=== PATIENT | female | born 1950 | race Caucasian/White ===

== ENCOUNTER 2023-11-13 08:46 | Outpatient (CLI) | payer MEDICARE, SELFPAY | END 2023-11-13 08:47 | disposition home or self-care (01) | PROVIDERS: Visit Provider Nurse Practitioner Family | DX: R55 Syncope and collapse (principal) | CPT/HCPCS: 93246 ==

== ENCOUNTER → 2023-12-02 04:00 | Outpatient (CLI) | payer MEDICARE, SELFPAY ==
--- NOTE | 2023-12-02 | DI.US_ITS ---
APPROVED REPORT EXAM: Comprehensive 2D, Doppler, and color-flow Echocardiogram Patient Location: Out-Patient After School Counselor: Della Goins RDCS (AE) Indications: Cardiac murmur, syncope/collapse Other Information Study Quality: Adequate Conclusion Normal left ventricular wall thickness and chamber size. Ejection fraction is 60%. Wall motion is n ormal Normal right ventricular size and function Both atria are normal in size There is no structural or hemodynamically significant valvular disease Estimated right ventricular systolic pressure is 26 mmHg Wall motion Left Ventricle The left ventricle is normal size. The left ventricular systolic function is normal. The left ventric ular ejection fraction is within the normal range. There is normal left ventricular wall thickness. T here is normal LV segmental wall motion. There is no ventricular septal defect visualized. LVEF is 60 %. Right Ventricle The right ventricle is normal size. The right ventricular systolic function is normal. Atria The left atrium size is normal. The right atrium size is normal. The interatrial septum is intact wit h no evidence for an atrial septal defect. Aortic Valve The aortic valve is normal in structure. Aortic valve is trileaflet. There is no aortic valvular sten osis. Trace aortic regurgitation. Mitral Valve The mitral valve is normal in structure. No evidence of mitral valve stenosis. Trace to mild mitral r egurgitation. Tricuspid Valve The tricuspid valve is normal in structure. There is no tricuspid valve stenosis. Trace to mild tricu spid regurgitation. The RVSP is 25.8 mmHg. Pulmonic Valve Pulmonic valve is not well visualized. There is no pulmonic valvular stenosis. There is no pulmonic v alvular regurgitation. Great Vessels The aortic root is normal in size. The ascending aorta is normal in size. Aortic arch is normal in ca liber. IVC is normal in size and collapses >50% with inspiration. Pericardium There is no pericardial effusion. 2D Dimensions IVSD d PLAX 0.88 cm F: 0.6-1.0 Ao Root d 3.15 cm F: 2.7 - 3.3 LVPW d PLAX 0.90 cm F: 0.6 - 1.0 Ao Asc Diam d 3.19 cm F: 2.3 - 3.1 LVID d PLAX 4.95 cm F: 3.8 - 5.2 LVDs 3.37 cm F: 2.2 - 3.5 LV EF Teichholz 59.8 % FS 31.93 % LV EDV (Teich) 115.3 mL LV ESV (Teich) 46.3 mL M-Mode TAPSE 2.14 cm (M/F) >1.7 Auto EF LV EDV A4C 109.1 mL LV EDV A2C 90.4 mL LV EDV BP 100.4 mL LV ESV A4C 43.3 mL LV ESV A2C 37.0 mL LV ESV BP 39.8 mL LVEF(%) A4C 60.3 % LVEF(%) A2C 59.1 % LVEF(%) BP 60.4 % LV SV A4C 65.8 ml LV SV A2C 53.4 ml LV SV BP 60.7 ml LV CO A4C 3.4 L/min LV CO A2C 2.7 L/min LV CO BP 3.0 L/min HR A4C 51.14 BPM HR A2C 51.07 BPM LV EDV Index (BP) LA Volume LA Length A4C 4.1 cm LA Length A2C 4.3 cm LA Area A4C s 12.93 cm2 LA Area A2C s 13.49 cm2 LA Vol A4C A-L 34.62 mL LA Vol A2C A-L 35.99 mL LA Vol Biplane A-L 36.1 mL LA Vol/BSA A4C A-L LA Vol/BSA A2C A-L LA Vol/BSA BP A-L 20.5 mL/m2 LA Vol A4C MOD 32.5 mL LA Vol A2C MOD 33.3 mL LA Vol BP MOD 33.6 mL RA Volume RA Area A4C 9.1 cm2 RA ESV A4C (A-L) 20.1mL RA Vol/BSA A4C A-L RA Length A4C 3.5 cm RA ESV A4C (MOD) 19.2mL LV Diastology MV E' medial 0.079 (>0.07 m/s) MV E Vmax 0.69 (0.4-1.3 m/s) MV E/E' MED 8.74 (<14) MV A Vmax 0.70 (0.4-1.3 m/s) MV E' lateral 0.077 (>0.1 m/s) E/A Ratio 1.0 MV E/E' LAT 8.94 (<14) MV E' Average 0.078 m/s MV E/E'(average) 8.84 Aortic Valve AoV Vmax 1.23 m/s LVOT Vmax 1.04 m/s AoV Peak Grad 6.1 mmHg LVOT Peak Grad 4.3 mmHg AoV Area (Vmax) 2.66 cm2 LVOT VTI 0.227 m AoV VTI 0.299 m LVOT Mean Grad 2.2 mmHg AoV Mean Daniel. 0.86 m/s LVOT SV 71.66 mL AoV Mean Grad 3.4 mmHg LVOT Diam s 2.00 cm AoV Area (VTI) 2.40 cm2 Velocity Ratio 0.85 Mitral Valve MV DT 171 (160-240 msec) MV Vmax TIPS 0.71 m/s MV Mean Grad 0.7 (<2mmHg) MV VTI 0.321 m Pulmonary Valve PV Vmax 0.83 (0.5-1.5 m/s) RVOT Vmax 0.53 m/s PV Peak Grad 2.8 mmHg RVOT Peak Gr. 1.1 mmHg PV Mean Daniel 0.60 m/s RVOT VTI 0.113 m PV Mean Grad 1.6 mmHg RVOT Mean Gr. 0.7 mmHg Tricuspid Valve RA Pressure 3.00 mmHg TR Vmax 2.39 m/s TV S' 0.15 m/s TR Peak Grad 22.8 mmHg RVSP (TR) 25.8 mmHg
== END ==
PROVIDERS: PCP Nurse Practitioner Family; Visit Provider Nurse Practitioner Family
DX: R55 Syncope and collapse (principal); R01.1 Cardiac murmur, unspecified; I36.1 Nonrheumatic tricuspid (valve) insufficiency; I34.0 Nonrheumatic mitral (valve) insufficiency
CPT/HCPCS: 93306

== ENCOUNTER 2023-12-11 07:19 | Outpatient (CLI) | payer MEDICARE, SELFPAY ==
--- NOTE | 2023-12-11 08:55 | W.CARDEVENT ---
Date of service: 12/11/23 Time of Service: 08:55 Cardiac Event Recorder Referring Provider:: Hilary Varela Indications:: Syncope Cardiac Event Note: This is a cardiac event monitor Patient was monitored for 13 days and 3 hours Rhythm throughout was sinus with an average heart rate of 54. Minimum was 27, maximum 161. There were very rare isolated ventricular ectopic beats. There were rare atrial premature beats. There were several brief self-limited atrial runs. These were generally 3-4 beats in duration, longest was 10 beats. There was no atrial fibrillation, no high-grade AV block, no pauses greater than 3 seconds Patient's symptoms correlated with sinus rhythm and sinus tachycardia
== END 2023-12-11 07:20 | disposition home or self-care (01) ==
LOC: CARDOPNVT 07:19
PROVIDERS: PCP Nurse Practitioner Family; Visit Provider Internal Medicine Cardiovascular Disease
DX: R55 Syncope and collapse (principal); I49.1 Atrial premature depolarization
CPT/HCPCS: 93248

== ENCOUNTER 2024-04-15 01:00 | Outpatient (CLI) | payer MEDICARE, SELFPAY ==
--- NOTE | 2024-04-15 | ETT_ITS ---
APPROVED REPORT Exam: Exercise Treadmill Patient Location: Out-Patient Room/Bed: Stress Nurse: Gita Guo RN Ordering Provider:HANNAH HUGGINS, Contact Number: [phone] BMI: 24.20 Baseline Rhythm: Sinus Bradycardia Indications: SOB, Medical History Medical History: Basal cell carcinoma of face, murmur, HLD, pituitary adenoma, syncope, bradycardia Cardiac Medications: Atorvastatin, bromocriptine, calcium, estradiol, ferrous sulfate, vitamin K2, zy rtec Allergies: Penicillin Cardiac Risk Factors: HLD, former smoker Previous Cardiac Procedures: None Pretest Chest Pain Characteristics: None Exercise History: Physically active Physical Disabilities: L hip Lung Sounds: Clear to auscultation Heart Sounds: Irregular Stress Test Details Test: Exercise stress testing was performed using a Aj protocol. Rest Stress HR Resting HR Supine: 55 bpm Max Heart Rate (APMHR): 145 bpm Resting HR Standin bpm Target HR (85% APMHR): 123 bpm Max HR Achieved: 136 bpm % of APMHR: 94 Recovery HR: 55 bpm HR response to stress: Accelerated HR response to stress BP Resting BP Supine: 130/72 mmHg Resting BP Standin/70 mmHg Max BP: 158/68 mmHg Recovery BP: 128/70 mmHg BP response to stress: Normal blood pressure response to stress. ECG Resting ECG: Sinus Bradycardia Ectopy: None Stress ECG: Sinus Tachycardia ST Change: No significant ST segment changes noted Arrhythmia: Rare PVC's Recovery ECG: Sinus Bradycardia Recovery ST Change: No significant ST segment changes noted Recovery Arrhythmia: Rare PVC's Clinical Reason for Termination: Target HR Achieved, artifact Stress Symptoms: None Exercise duration: 03 min59 sec Highest Stage Reached: Stage 1: 1.7 mph at 10% grade. Exercise capacity: 5.81 METs Angina Score: None Pimentel Treadmill Score: 3.6 Rate Pressure Product: [id number] Stress ECG Conclusion 1. Resting electrocardiogram showed low voltage and late transition 2. Patient exercised on the Aj protocol and completed workload of 5.8 METS 3. Normal blood pressure response to exercise. Accelerated heart rate response to exercise suggest d econditioning. Patient achieved 96% of the maximal predicted heart rate for age 4. There was no electrocardiographic evidence of myocardial ischemia 5. There were no significant dysrhythmias Pimentel Treadmill Score is 3.6 which is Moderate risk. Stress Test Summary STAGE Time (mins) Speed (mph) Grade (%) HR BP SpO2 SYMPTOMS METS Supine 55 130/72 98% Standing 61 112/70 1 3 1.7 10 118 152/68 97% 4.5 2 6 2.5 12 130 7 1 min recovery 96 158/68 97% 3 min recovery 57 128/70 97% 6 min recovery 55 127/72
== END 2024-04-15 01:20 ==
LOC: DI 01:00
PROVIDERS: PCP Nurse Practitioner Family; Visit Provider Nurse Practitioner Family
DX: R06.02 Shortness of breath (principal)
CPT/HCPCS: 93016; 93018; 93017

== ENCOUNTER → 2024-10-06 10:09 | Outpatient (BNVA) | payer MEDICARE, SELFPAY | PROVIDERS: PCP Nurse Practitioner Family; Referring Provider Nurse Practitioner Family; Visit Provider Student in an Organized Health Care Education/Training Program | DX: M70.62 Trochanteric bursitis, left hip (principal) | CPT/HCPCS: 99213 ==

== ENCOUNTER 2024-11-11 09:41 | Day surgery (SDC) | payer MEDICARE, SELFPAY ==
[2024-11-11] VITALS (23 sets, daily range): BP systolic 82–152; BP diastolic 37–91; PULSE 39–62; RESP 12–34; TEMP 36–36.7; O2SAT 94–100; BMI 24.5
--- NOTE | 2024-11-11 07:21 | W.PM.DSUDISC ---
Date of service: 11/11/24 Discharge Plan Disposition Patient Disposition: Home Condition: Stable Discharge Details Attending Provider: Jaycob Jacob Primary Care Provider: Hilary Varela Home Meds and New Rx's Prescriptions: New aspirin 81 mg capsule 81 mg PO DAILY 14 Days Qty: 14 0RF naproxen 250 mg tablet 250 - 500 mg PO BID PRN (Reason: moderate pain and swelling) Qty: 40 0RF tramadol 50 mg tablet 50 mg PO Q8H PRN (Reason: severe pain) Qty: 12 0RF Continued atorvastatin 10 mg tablet 10 mg PO QHS bromocriptine 2.5 mg tablet 2.5 mg PO DAILY Rx Instructions: must administer with a meal/food calcium citrate 250 mg calcium tablet 250 mg PO DAILY estradiol 0.01 % (0.1 mg/gram) cream 1 appful vaginal DAILY Rx Instructions: for 14 days ferrous sulfate 325 mg (65 mg iron) tablet 325 mg PO DAILY cyanocobalamin (vitamin B-12) 1,000 mcg capsule 1,000 mcg PO DAILY Discharge Instructions Additional Instructions: Surgery: Left hip endoscopy with iliotibial band release, trochanteric bursectomy, and gluteal tendon repair 11/11/24 Activity: Protected weightbearing with a walker for 6 weeks. Gentle hip range of motion. No strengthening for 10 weeks. A physical therapy prescription will be sent electronically to begin in about 3 weeks. Prescriptions: Aspirin 81 mg take 1 daily to prevent a blood clot for 2 weeks Naproxen 250 mg take 1-2 every 12 hours with a meal as needed for moderate pain Tramadol 50 mg take 1 every 8 hours as needed for severe pain You may use [id number] Tylenol (acetaminophen) as needed for mild pain. These pain medications may be taken all at once or in different combinations as needed. Also, recommend Colace (docusate) as a stool softener as surgery and pain medicine cause constipation. You may try [id number] diphenhydramine (Benadryl) 25-50 mg nightly as a sleep aid Dressings: Leave dressing in place for 3 days. May then remove and leave open to air or cover incisions with Band-Aids. Leave the sticky Steri-Strips in place until they fall off or remove them after you shower. May shower after 5 days. Follow-up: 10-[address] Jacob You may take off the leg compression stockings this evening at home. You may also leave them on a few days longer if you have a history of leg swelling or edema. Let us know right away if you develop any redness, drainage, fevers, chest pain, or trouble breathing. Do not drink alcohol or drive for at least 24 hours after anesthesia. Please call the office during business hours with any questions or concerns. Discharge Orders Discharge Orders: Discharge Order (Routine); Ordered 11/11/24 Ordered By: Alexia Levin DS: Diagnosis Discharge Diagnosis (1) Trochanteric bursitis of left hip: Status: Acute (2) Tear of left gluteus medius tendon: Status: Acute (3) Iliotibial band syndrome of left side: Status: Acute
--- NOTE | 2024-11-11 07:32 | ROE_ITS ---
Operative Note Operative Note PRE-OP DIAGNOSIS: Left hip 1. Iliotibial band syndrome 2. Trochanteric bursitis 3. Gluteal tendinopathy POST-OP DIAGNOSIS: same Left hip 1. Iliotibial band syndrome 2. Trochanteric bursitis 3. Gluteal tendon tearing PROCEDURE: Left hip endoscopic 1. Iiliotibial band release, CPT# 04558 2. Trochanteric bursectomy, CPT# 80700 3. Gluteal tendon repair, CPT# 79140 SURGEON: Jaycob Jacob HOME LIGHTING ADVISER: Alexia Levin ANESTHESIA TYPE: Local By Surgeon and General LMA/ETT Refer to Anesthesia Record ESTIMATED BLOOD LOSS: 10 COMPLICATIONS: None Patient was transported to: PACU Patient's condition: stable Implants: Arthrex 4.75 mm bio composite SwiveLock anchor Indications: Please see complete medical record for details. Findings: Fairly normal iliotibial band. Moderately abundant and inflamed trochanteric bursitis. Obvious large and chronic?appearing gluteal minimus and medius tendon tearing. There was a split between the posterior and anterior portions of the medius and detachment of the superficial about 50% tendon layers with moderate retraction. There was fraying and softening of the attachment and partial detachment of the gluteus minimus anteriorly. Fibrinous softened bone changes beneath the tendon tearing devoid area. Procedure Description: In the operating room, general anesthesia was induced. The patient was positioned supine on the [place] operating room table. All bony prominences were well-padded. Preoperative antibiotics were administered. The hip was prepped and draped in the usual sterile fashion. The correct patient, procedure, and side of the procedure were all verified prior to incision. 30 cc of 0.25% bupivacaine containing epinephrine was infiltrated about the subcutaneous tissues for the planned anterior lateral and distal anterolateral portals as well as deeply over the greater trochanter. A knife was used to incise the skin for the anterior lateral and distal anterolateral portals followed by blunt dissection subcutaneously. Under fluoroscopic guidance, a s witching stick and arthroscope were inserted localizing the iliotibial band over the greater trochanter. Blunt dissection and the mechanical shaver were used to resect fat and overlying tissue about the center of the iliotibial band and carefully expose the anterior and posterior margins. Once there was adequate exposure of the IT band, the greater trochanter was again localized under fluoroscopic guidance with a spinal needle inserted through the skin down to bone. This central area was marked using the radiofrequency ablator. A Bourbon blade was brought in and used to create a 2 cm longitudinal incision in line with the IT band fibers as well as extending it in a cruciate fashion with 2 cm incisions anteriorly and posteriorly. The radiofrequency ablator was used to achieve hemostasis. The mechanical shaver was then used to debride the IT band released edges exposing the trochanteric bursa. The mechanical shaver was then used to excise the trochanteric bursa taking care to protect musculature about the margins of the greater trochanter as well as neurovascular structures especially posteriorly. There was excellent visualization of the vastus lateralis as well as gluteus medius confirming appropriate bursa excision. The hip was brought through range of motion including internal and external rotation and there was no impinging iliotibial band tissue or remaining pathologic bursa. The viewing and working portals were switched and appropriate IT band release, trochanteric bursa excision, and hemostasis confirmed. The gluteal tendons were then thoroughly inspected and probed. The grasper was used to confirm reasonable tissue for repair of the large partial superficial layers involving the gluteus minimus and medius. Given the advanced age and chronicity of the tendon tear, repair was planned to a single central anchor with large tissue grabs. Between the tendon layers and at the tendon bone interface the rasp and shaver were used to thoroughly prepare debride and abrade and optimize tissue for repair. The Onevestion self retrieving suture passer was then used to place a FiberTape in a wide inverted horizontal mattress configuration incorporating the gluteus medius. A suture tape FiberLink was then placed incorporating the bulk of the past the split tearing more anteriorly. The punch and fluoroscopy were used to localize best anchor placement in good bone. All 3 suture tails were then loaded on the anchor eyelet and a 4.75 mm SwiveLock anchor was deployed with excellent fixation strength and good tissue reduction and hold. There was some redundant and softening of the gluteus minimus more anteriorly centrally distally, which was incorporated with a single tail of the sliding #2 FiberWire shuttled through the tissue and secured with SMC arthroscopic knot. The repair was inspected stable through motion and probing with good tissue anteriorly to anterior approximately. Excellent tissue posteriorly. Some deficiency and limited coverage more centrally proximally over the area of worst injury and softened bone. Suction was used to remove fluid from the endoscopic space. The portals were closed using 3-0 Monocryl in a buried fashion. Steri-Strips were applied over the incisions followed by Xeroform, 4 x 4 gauze, an ABD pad, and secured with tape. The patient awoke from anesthesia without complication and was transferred to the recovery room in a stable condition. Date of Procedure: 11/11/24
--- NOTE | 2024-11-11 07:47 | W.ANESPRE ---
General Info Date of Service Date Performed: 11/11/24 Height: 5 ft 6 in Weight: 68.946 kg Body Mass Index (BMI): 24.5 Surgical Procedure: Operation Date: 11/11/24 12:20 Proposed Procedure Side Surgeon p Endoscopic Iliotibial Band Release w/ Trochanteric Bursectomy, Possible Gluteal Tendon Repair Left Jaycob Jacob MD Actual Procedure Side Surgeon p Endoscopic Iliotibial Band Release w/ Trochanteric Bursectomy, Possible Gluteal Tendon Repair Left Jaycob Jacob MD Pre-Op Diagnosis Post-Op Diagnosis Trochanteric bursitis of left hip Meds Allergies and Home Medications Allergies Allergy/AdvReac Type Severity Reaction Status Date / Time Penicillins Allergy Intermediate Other (See Verified 11/11/24 10:43 Comment) Home Medication ?Medication ?Instructions ?Recorded atorvastatin 10 mg tablet 10 mg PO QHS 09/08/24 bromocriptine 2.5 mg tablet 2.5 mg PO DAILY 09/08/24 calcium citrate 250 mg PO DAILY 09/08/24 cyanocobalamin (vitamin B-12) 1,000 mcg PO DAILY 09/08/24 1,000 mcg capsule estradiol 0.01% (0.1 mg/gram) 1 appful vaginal DAILY 09/08/24 vaginal cream ferrous sulfate 325 mg (65 mg 325 mg PO DAILY 09/08/24 iron) tablet Current Visit Medications: Current Medications Generic Name Dose Route Start Last Admin Trade Name Freq PRN Reason Stop Dose Admin Ringer's Solution 1,000 mls @ 80 mls/hr 11/11/24 06:00 IV 11/11/24 23:59 INFUSION ALESSIO Cefazolin Sodium/Dextrose 2 gm in 50 mls @ 100 mls/hr 11/11/24 06:00 Ancef Duplex IVPB 11/11/24 23:59 PREOP ALESSIO Tranexamic Acid/Sodium Chloride 1,000 mg in 100 mls @ 600 mls/hr 11/11/24 06:00 IVPB 11/11/24 23:59 DIRECTED ALESSIO IV Miscellaneous Supplies 1 each 11/11/24 06:00 Iv Access IV 11/11/24 23:59 DIRECTED ALESSIO Oxycodone HCl 0 mg 11/11/24 07:20 Oxycodone 5 Mg Tab PO 12/11/24 07:19 Q3H PRN PRN Pain Sodium Chloride 0 ml 11/11/24 06:00 Normal Saline Flush 10 Ml Syr IV 11/11/24 23:59 PRN PRN Sodium Chloride 0 ml 11/11/24 06:00 Normal Saline 10 Ml Vial IJ 11/11/24 23:59 DIRECTED PRN Sterile Water 0 ml 11/11/24 06:00 Water,Injection,Sterile 10 Ml Vial IJ 11/11/24 23:59 DIRECTED PRN PFSH Active Problems Active Problems: Problem Status Onset Code Trochanteric bursitis of left hip Acute M70.62 Medical History Medical History (Updated 11/10/24 @ 08:48 by Angel Sandy) Pituitary adenoma Basal cell carcinoma of face Murmur pt. states she was unaware of this Hyperlipemia Surgical History Surgical History History of cholecystectomy History of colonoscopy History of cataract surgery Tobacco Smoking/Tobacco Use Status: Former Tobacco Use Passive smoking exposure: No Alcohol Alcohol Intake: current Alcohol intake frequency: a few times a week Substance Use Substance use: Daily Substance use type: marijuana Details: edibles Vital Signs and Lab Results Lab Results Blood Type / Crossmatch: No Data to Display Complete Blood Count: No Data to Display Complete Metabolic Panel: No Data to Display Liver Function Panel: No Data to Display Coagulation Panel: No Data to Display Cardiac Panel: No Data to Display Arterial Blood Gas: No Data to Display Venous Blood Gas: No Data to Display Pancreas Panel: No Data to Display Thyroid Panel: No Data to Display Infectious Disease: No Data to Display Blood Cultures: No Data to Display Toxicology Panel: No Data to Display Anesthesia Assessment and Plan Anesthesia History Personal History: No History of Anesthesia Complications Family History: No Family History of Anesthesia Complications Exercise Tolerance Exercise Tolerance: Metabolic Equivalents>4 Cardiac & Pulmonary Exam Cardiac Exam: Normal S1/S2 Heart Sounds Pulmonary Exam: Clear Bilateral Breath Sounds Implantable Cardiac Device Does patient have a Pacemaker or an ICD?: No Airway Exam Known Difficult Airway: No Mallampati Class: 3 Mouth Opening: Narrow (< 3cm) Thyromental Distance: Greater than 3 cm Neck Range of Motion: Full ROM Neck Circumference: Normal Teeth Condition: Normal Dentition ASA Classification ASA Score: ASA 2 Emergency Case?: No NPO Status NPO Status: NPO Clears >2 hours, Solids >8 hours Anesthesia Plan Resuscitation Status: Full Code Anesthesia Technique: General Anesthesia Airway Planned: Endotracheal Tube Monitors Used: Standard Monitors Preoperative Comments:: 74 yo female for IT release. Sig PMHx: pituitary adenoma (bromcriptine), former smoker, occ EtOH. ECHO: LVEF 60%, no sig valve issues. Stress: 5.8 METS, no ECG evidence of ischemia.
[2024-11-11] MEDS: Lactated Ringers 1,000 ML 80 ML IV (10:41)
[2024-11-11] MEDS: ceFAZolin 2 GM/50 ML BAG IVPB (12:15)
[2024-11-11] MEDS: TRANEXAMIC ACID/SOD. CHL. 1,000 MG/100 ML BAG 600 MG IVPB (12:23)
--- NOTE | 2024-11-11 13:24 | DI.RAD_ITS ---
Exam(s) XR HIP LT IN OR EXAM: XR HIP LT IN OR CLINICAL HISTORY: Trochanteric bursitis of left hip TECHNIQUE: 2D and realtime digital imaging was performed. CONTRAST MATERIAL: Refer to procedure report. COMPARISON: MR MR HIP LT WO CONTRAST from 08/18/2024 FINDINGS: Fluoroscopy was provided for Dr. Jacob in the OR . Please refer to the procedure report for comple te details. Ka,r=0.84 mGy IMPRESSION: RADIATION DOSE DELIVERED: 0.0 0.0 0
[2024-11-11] MEDS: EPINEPHrine 10 MG/10 ML ML (13:28)
--- NOTE | 2024-11-11 14:27 | W.ANESPOSTOP ---
Postoperative Evaluation Date, Time and Location Date Performed: 11/11/24 Time Performed: 14:27 Patient Location: PACU Vital Signs Most Recent Imported Vital Signs: Most Recent Vital Signs Temp Pulse Resp BP Pulse Ox 36.3 C L 48 L 34 H 125/71 98 11/11/24 14:16 11/11/24 14:21 11/11/24 14:21 11/11/24 14:21 11/11/24 14:21 Pain Score Most Recent Pain Score: Most Recent Pain Score Pain Level 1 11/11/24 14:16 Assessment Mental Status: Awake (Alert & Oriented to Patient Baseline) Airway and Respiratory Function: Patent airway with normal (patient baseline) respiratory exam Cardiovascular Function: Hemodynamically Stable Hydration Status: Adequately Hydrated Nausea & Vomiting: No Nausea or Vomiting Pain: Pain is tolerable per patient Peripheral Nerve Block: Patient did not receive a nerve block
== END 2024-11-11 15:26 | disposition home or self-care (01) ==
LOC: SUR 09:42
PROVIDERS: PCP Nurse Practitioner Family; Visit Provider Student in an Organized Health Care Education/Training Program
PROC: (CPT 29863; principal; 2024-11-11 12:00)
DX: M76.32 Iliotibial band syndrome, left leg (principal); M70.62 Trochanteric bursitis, left hip; S76.012A Strain of muscle, fascia and tendon of left hip, initial encounter; X58.XXXA Exposure to other specified factors, initial encounter
CPT/HCPCS: 27062; 27305; 27006; 73501; J0131; J0690; J1100; J1885; J2003; J2371; J2405; J2704

== ENCOUNTER → 2024-11-23 10:49 | Outpatient (BNVA) | payer MEDICARE, SELFPAY | PROVIDERS: PCP Nurse Practitioner Family; Referring Provider Nurse Practitioner Family; Visit Provider Student in an Organized Health Care Education/Training Program | DX: Z47.89 Encounter for other orthopedic aftercare (principal); M76.32 Iliotibial band syndrome, left leg; M70.62 Trochanteric bursitis, left hip; S76.012D Strain of muscle, fascia and tendon of left hip, subsequent encounter; X58.XXXD Exposure to other specified factors, subsequent encounter | CPT/HCPCS: 99024 ==

== ENCOUNTER → 2025-01-11 08:52 | Outpatient (BNVA) | payer MEDICARE, SELFPAY | PROVIDERS: PCP Nurse Practitioner Family; Referring Provider Nurse Practitioner Family; Visit Provider Student in an Organized Health Care Education/Training Program | DX: M70.62 Trochanteric bursitis, left hip (principal); M76.32 Iliotibial band syndrome, left leg; S76.012D Strain of muscle, fascia and tendon of left hip, subsequent encounter; X58.XXXD Exposure to other specified factors, subsequent encounter | CPT/HCPCS: 99024 ==